=== PATIENT | male | born 1950 | race Caucasian/White ===

== ENCOUNTER 2021-02-14 03:40 | Outpatient (CLI) | payer OTHER, SELFPAY ==
[2021-02-14 13:11] LABS: FREE T4 1.15 ng/dL (0.76-1.46); TSH 0.63 uIU/mL (0.36-3.74)
[2021-02-14 22:09] LABS: T3,Free 2.9 pg/mL (2.8-5.3)
== END 2021-02-14 03:41 | disposition home or self-care (01) ==
LOC: LBO 03:40
PROVIDERS: Visit Provider Chiropractor
DX: E03.9 Hypothyroidism, unspecified (principal)
CPT/HCPCS: 36415; 84439; 84443; 84481